=== PATIENT | male | born 1985 | race Caucasian/White ===

== ENCOUNTER 2020-11-23 13:15 | Emergency (ER) | payer SELFPAY ==
[2020-11-23 13:26] VITALS: BP 145/82
[2020-11-23 13:43] LABS: BASOPHILS # (AUTO) 0.1 10^3/uL (0.0-0.1); BASOPHILS % (AUTO) 0.9 %; EOSINOPHILS # (AUTO) 0.5 10^3/uL (0.0-0.7); EOSINOPHILS % (AUTO) 5.1 %; HCT - HEMATOCRIT 45.1 % (42.0-52.0); HGB - HEMOGLOBIN 15.3 g/dL (14.0-18.0); LYMPHOCYTES # (AUTO) 3.9 10^3/uL (1.5-3.5); LYMPHOCYTES % (AUTO) 38.2 %; MEAN CORPUSCULAR HEMOGLOBIN 32.1 pg (27.0-31.0); MEAN CORPUSCULAR HGB CONC 33.9 g/dL (32.0-36.0); MEAN CORPUSCULAR VOLUME 94.5 fL (80.0-94.0); MEAN PLATELET VOLUME 9.5 fL (7.4-11.4); MONOCYTES # (AUTO) 0.8 10^3/uL (0.0-1.0); MONOCYTES % (AUTO) 7.4 %; NEUTROPHILS # (AUTO) 4.9 10^3/uL (1.5-6.6); NEUTROPHILS % (AUTO) 48.1 %; PLT - PLATELET COUNT 367 10^3/uL (130-450); RED BLOOD COUNT 4.77 10^6/uL (4.70-6.10); RED CELL DISTRIBUTION WIDTH 11.9 % (12.0-15.0); WHITE BLOOD COUNT 10.2 x10^3/uL (4.8-10.8)
[2020-11-23 13:56] LABS: ALBUMIN 4.6 g/dL (3.2-5.5); ALBUMIN/GLOBULIN RATIO 1.4 (1.0-2.2); BILIRUBIN,TOTAL 0.7 mg/dL (0.2-1.0); CALCIUM 9.5 mg/dL (8.5-10.3); CREATININE 0.8 mg/dL (0.6-1.2); TOTAL PROTEIN 7.9 g/dL (6.7-8.2)
[2020-11-23] MEDS ORDERED: oxyCODONE 5 MG TABLET PO STA (14:19)
[2020-11-23] MEDS ORDERED: PANTOPRAZOLE 40 MG TABLET PO STA (14:19)
--- NOTE | 2020-11-23 14:19 | ED Physician Documentation ---
PD HPI ABD PAIN - Stated complaint Stated Complaint: STOMACH PX - Chief complaint Chief Complaint: Abd Pain - History obtained from History obtained from: Patient - Additional information Additional information: 35-year-old gentleman with history of alcoholism. He states that he had outpatient labs done a couple of weeks ago with elevated transaminases, this prompted him to stop drinking until last night when he went on a moon. This morning he has right upper quadrant pain. His friend gave him something for pain, is not sure what around 10 AM it was not helpful. PD PAST MEDICAL HISTORY - Past Medical History Cardiovascular: None Respiratory: Other Endocrine/Autoimmune: None GI: None : None HEENT: None Psych: Anxiety, Panic attacks Musculoskeletal: Other Derm: None - Past Surgical History Past Surgical History: No - Present Medications Home Medications: Ambulatory Orders Medication Instructions Recorded Confirmed Omeprazole 40 mg PO DAILY #7 cap 11/23/20 Oxycodone HCl/Acetaminophen 1 - 2 each PO Q6H PRN #7 tablet 11/23/20 [Percocet 5-325 mg Tablet] hydrOXYzine HCL [Hydroxyzine HCl] 25 mg PO PRN PRN 11/23/20 11/23/20 - Allergies Allergies/Adverse Reactions: Allergies Allergy/AdvReac Type Severity Reaction Status Date / Time No Known Drug Allergies Allergy Verified 11/23/20 13:26 - Social History Does the pt smoke?: Yes Smoking Status: Current every day smoker Does the pt drink ETOH?: Yes Does the pt have substance abuse?: No - Immunizations Immunizations are current?: Yes - POLST Patient has POLST: No PD ED PE NORMAL - Vitals Vital signs reviewed: Yes - General General: Alert and oriented X 3, No acute distress - Abdomen Abdomen: Normal bowel sounds, Soft, Non tender, No organomegaly - Neuro Neuro: Alert and oriented X 3, Normal speech Results - Vitals Vitals: Vital Signs - 24 hr 11/23/20 13:22 Temperature 36.4 C L Heart Rate 80 Respiratory 16 Rate Blood Pressure 145/82 H O2 Saturation 100 Oxygen O2 Source Room air - Labs Labs: Laboratory Tests 11/23/20 11/23/20 13:38 13:38 WBC 10.2 RBC 4.77 Hgb 15.3 Hct 45.1 MCV 94.5 H MCH 32.1 H MCHC 33.9 RDW 11.9 L Plt Count 367 MPV 9.5 Neut # (Auto) 4.9 Lymph # (Auto) 3.9 H [place] # (Auto) 0.8 Eos # (Auto) 0.5 Baso # (Auto) 0.1 Absolute Nucleated RBC 0.00 Nucleated RBC % 0.0 Sodium 140 Potassium 4.0 Chloride 102 Carbon Dioxide 23 Anion Gap 15.0 H BUN 10 Creatinine 0.8 Estimated GFR (MDRD) 111 Glucose 105 H Calcium 9.5 Total Bilirubin 0.7 AST 27 ALT 42 Alkaline Phosphatase 61 Total Protein 7.9 Albumin 4.6 Globulin 3.3 Albumin/Globulin Ratio 1.4 Lipase 43 PD MEDICAL DECISION MAKING - ED course ED course: His liver enzymes today are normal, he is not tender. Presume some alcoholic gastritis from last night. Does not seem like he has an acute liver issue. He was advised to quit drinking and not take medications when he does not know what they are. Departure - Departure Disposition: 01 Home, Self Care Clinical Impression: Abdominal pain Qualifiers: Abdominal location: right upper quadrant Qualified Code(s): R10.11 - Right upper quadrant pain Condition: Good Record reviewed to determine appropriate education?: Yes Instructions: ED Abdominal Pain Unkn Cause Male Prescriptions: Omeprazole 40 mg PO DAILY #7 cap Oxycodone HCl/Acetaminophen [Percocet 5-325 mg Tablet] 1 - 2 each PO Q6H PRN #7 tablet PRN Reason: pain Comments: Liver enzymes and labs today are normal, do not drink alcohol. Do not drive today. Follow-up with your primary care physician. Return if worsening.
== END 2020-11-23 15:01 | disposition home or self-care (01) ==
LOC: ED 13:15
DX: R10.11 Right upper quadrant pain (principal); F10.20 Alcohol dependence, uncomplicated; F17.200 Nicotine dependence, unspecified, uncomplicated
CPT/HCPCS: 36415; 80053; 83690; 85025; 99281; 99283; A9270